=== PATIENT | male | born 1985 | race African-American/Black ===

== ENCOUNTER 2017-05-26 17:02 | Emergency (ER) | payer OTHER, SELFPAY ==
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
[2017-05-26 18:41] LABS: CHLORIDE,CL 104 mmol/L (98-110); SODIUM,NA 140 mmol/L (136-146)
[2017-05-26] MEDS ORDERED: Bacitracin Oint 1 GM U/D Packet TOP ONE ×2 (18:53)
--- NOTE | 2017-05-27 13:02 | CT ---
EXAM DATE: 05/26/17 PATIENT'S AGE: 31 Patient: PAUL OBI Facility: [place], [place] Site . Site : 1985 Study: CT Head [id number]/17/2017 6:12:23 PM Ordering Physician: Ravinder Vargas Final Report: INDICATION: pain, dizziness CT HEAD WITHOUT CONTRAST TECHNIQUE: Multiple axial CT images were performed through the head without intravenous contrast administration. COMPARISON: No previous studies are currently available for comparison. FINDINGS: No acute intracranial hemorrhage is identified. No extra-axial collections are evident and there is no mass effect or midline shift. Ventricles are normal in size and configuration. Brain parenchyma appears normal with unremarkable albert-white differentiation. Osseous structures are within normal limits and no fractures are seen. Included portions of the paranasal sinuses and mastoid air cells are normally aerated. IMPRESSION: Normal non-contrast head CT. JACKIE ELLSWORTH MD [employer] Dictated by: Cristino Ellsworth MD @ 05/26/2017 18:25:32 (Electronic Signature) Report Signed by Proxy. [facility]
== END 2017-05-26 19:01 | disposition home or self-care (01) ==
LOC: MW.ED 17:02
DX: R55 Syncope and collapse (principal); S01.01XA Laceration without foreign body of scalp, initial encounter; X58.XXXA Exposure to other specified factors, initial encounter; Y99.0 Civilian activity done for income or pay
CPT/HCPCS: 36415; 70450; 70450-26; 80053; 85025; 99282; 99284-25